=== PATIENT | female | born 1940 | race Caucasian/White ===

== ENCOUNTER 2017-11-03 08:35 | Inpatient (IN) | payer MEDICARE, BC, OTHER ==
[~2017-11-03] VITALS: Ht 157.5 cm; Wt 67.6 kg
[~2017-11-03 08:35] MED LIST: ADULT LOW DOSE81 MG PO; ALEVE220 M1 PO; AMBEREN PO; APAP500 PO; ARTIFICIAL TEA1 EACH OP; ARTIFICIAL TEAR15 M1 OPHTHALMIC; ATIVAN0.5 MG; BIOFREEZE PAI3840 GM; CALCIUM 500 WI1 EAC3 PO; CALCIUM 600 +1 EAC5 PO; CLARITIN10 M2 PO; CLARITIN10 MG PO; CLARITIN5 MG PO; CRANBERRY TABL1 EACH PO; CRANBERRY500 M1 PO; CYCLOBENZAPRINE10 MG PO; ESTRACE CREAM TOP; FENTANYL TRANSDERM; FISH OIL + D31 EACH PO; FISH OIL 1,001000 M2 PO; FISH OIL 1,2001 EAC3 PO; FISHOIL PO; FLEXERIL PO; FLUOXETINE HCL10 M1 PO; FLUZONE 2045 MCG/011; GABAPENTIN PO; GABAPENTIN100 MG PO; GLUCOSAMINE-CH1 EAC4 PO; HEMORRHOID; HEMORRHOID OINT60 G1; IBUPROFEN 200200 M1 PO; IBUPROFEN200 M2 PO; KENALOG IN ORABA5 GM; KEPPRA 500 MG500 M1 PO; LEVOTHYROXINE0.05 MG PO; LEVOXYL75 MCG PO; LIDODERM 5%1 PATC1 TRANSDERM; LIORESAL 10 MG10 MG PO; LISINOPRIL10 MG; LISINOPRIL5 MG PO; LORAZEPAM 0.50.5 MG PO; LOVASTATIN 20 M20 MG PO; LOVASTATIN PO; LUTEIN-ZEAXANT1 EACH PO; MAGNES PO; MAGNESIUM OXID200 MG PO; MELADOX3 MG PO; MELATONIN3 MG PO; MELOXICAM7.5 MG PO; METOPROLOL SUCC25 M1 PO; MIRALAX255 GM PO; MULTIVITAMINS; MULTIVITAMINS PO; NAPROXEN SODIU220 M2 PO; NASAL MOISTURIZ30 ML; NASAL SPRAY30 ML; NEURONTIN 400400 M1 PO; NORCO 5-325 TA1 EACH PO; OCEAN45 ML NASAL; PEDIA-LAX400 MG PO; PERCOCET PO; PNEUMOVAX25 MCG/0.5; PREPARATION H O30 GM RECTAL; PROZAC 10 MG CA10 M1 PO; RECLAST 55 MG/100 M IV; SENNA-S TABLET1 EACH PO; SINUS & ALLERG1 EAC1 PO; SINUS CONGESTI PO; SV CALCIUM-MAG1 EACH PO; SYNTHROID50 MCG PO; TESSALON PERLE100 MG PO; TRAMADOL 50 MG50 MG; TRAMADOL 50 MG50 MG PO; TRIAMCINOLONE; TRIAMCINOLONE 0.5% TOP; TYLENOL P.M. E1 EAC3; TYLENOL W/CODEI1 TA2 PO; VITAMIN B-121000 MCG PO; VITAMIN B-122500 MCG SL; VITAMIN B-12500 MCG PO; ZANAFLEX4 MG PO; ZEAXANTHIN100 GM MC; ZINC CHELATE15 MG PO; [UNRECOGNIZED DRUG - OTHER] RECTAL
[2017-11-03 08:39] VITALS: BP 114/62
[2017-11-03 10:30] LABS: HEMATOCRIT 41.9 % (37.0-47.0); HEMOGLOBIN 13.6 gm/dL (12.0-15.0); MCH 29.3 pg (26.0-34.0); MCHC 32.5 g/dL (28.0-37.0); MCV 90.4 fL (80.0-100.0); MPV 7.7 fl. (7.2-11.1); NUCLEATED RBCS 0 /100WBC; PLATELET COUNT* 209 thou/uL (150-400); RBC 4.63 mil/uL (4.20-5.00); RDW-CV 12.8 % (10.5-14.5); WBC 18.6 thou/uL (4.0-11.0)
[2017-11-03 10:37] LABS: CALCIUM 9.1 mg/dL (8.5-10.1); CREATININE 0.8 mg/dL (0.6-1.3); POTASSIUM 3.8 mmol/L (3.5-5.1)
[2017-11-03 10:42] LABS: ALBUMIN 3.7 g/dL (3.4-5.0); TOTAL BILIRUBIN 0.7 mg/dL (<0.1-1.0); TOTAL PROTEIN 7.1 g/dL (6.4-8.2)
[2017-11-03 11:19] LABS: ABSOLUTE LYMPHOCYTES 0.9 thou/uL (0.8-5.3); ABSOLUTE MONOCYTES 0.7 thou/uL (0.0-1.2); ABSOLUTE NEUTROPHILS 16.9 thou/uL (1.6-8.1); PLATELET ESTIMATE ADEQUATE
[2017-11-03 11:27] VITALS: BP 120/68
[2017-11-03 14:02] VITALS: BP 118/57
[2017-11-03 16:00] VITALS: BP 96/51
[2017-11-03 21:40] VITALS: BP 107/60
[2017-11-03 22:24] LABS: URINE BILIRUBIN NEGATIVE (Negative); URINE BLOOD NEGATIVE (Negative); URINE CLARITY CLEAR; URINE COLOR YELLOW; URINE GLUCOSE-RANDOM NEGATIVE (Negative); URINE KETONES TRACE (Negative); URINE LEUKOCYTES-REFLEX NEGATIVE (Negative); URINE NITRITE-REFLEX NEGATIVE (Negative); URINE PROTEIN NEGATIVE (Negative); URINE UROBILINOGEN 0.2 E.U./dl (0.2-1.0)
[2017-11-04 07:45] VITALS: BP 144/69
[2017-11-04 09:24] LABS: HEMATOCRIT 34.5 % (37.0-47.0); HEMOGLOBIN 11.8 gm/dL (12.0-15.0); MCH 29.9 pg (26.0-34.0); MCHC 34.2 g/dL (28.0-37.0); MCV 87.4 fL (80.0-100.0); MPV 7.6 fl. (7.2-11.1); NUCLEATED RBCS 0 /100WBC; PLATELET COUNT* 204 thou/uL (150-400); RBC 3.95 mil/uL (4.20-5.00); RDW-CV 13.1 % (10.5-14.5); WBC 10.9 thou/uL (4.0-11.0)
[2017-11-04 10:12] LABS: ABSOLUTE LYMPHOCYTES 1.5 thou/uL (0.8-5.3); ABSOLUTE MONOCYTES 0.2 thou/uL (0.0-1.2); ABSOLUTE NEUTROPHILS 9.2 thou/uL (1.6-8.1); ANISOCYTOSIS 1+; POIKILOCYTOSIS 1+
[2017-11-04 10:13] LABS: PLATELET ESTIMATE ADEQUATE
[2017-11-04 10:16] LABS: APTT 29.5 Seconds (25.0-31.3); INR 1.1; PROTIME 10.7 Seconds (9.20-11.50)
--- NOTE | 2017-11-04 12:12 | EKG ---
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 BATEMAN : 1940 Requested By: Rajiv Aldrich Order Number: [id number] MD: Robert Schroeder Measurements Intervals [place] Rate: 63 P: -22 OK: 206 QRS: -38 QRSD: 155 T: 105 QT: 487 QTc: 499 Interpretive Statements Sinus rhythm Left bundle branch block Baseline wander in lead(s) V4 Compared to ECG 10/13/2015 09:12:24 rate slowed Electronically Signed On 11-04-2017 12:12:07 CDT by Robert Schroeder [email or web address] <ELECTRONICALLY SIGNED> By: Robert Schroeder MD, FAC 11/04/17 1212 1031 1031 Robert Schroeder MD, [facility] /EPI
[2017-11-04 15:49] VITALS: BP 131/73
[2017-11-05 05:35] LABS: CALCIUM 8.6 mg/dL (8.5-10.1); CREATININE 0.7 mg/dL (0.6-1.3); POTASSIUM 4.3 mmol/L (3.5-5.1)
[2017-11-05 05:41] LABS: ABSOLUTE BASOPHILS 0.1 thou/uL (0.0-0.2); ABSOLUTE EOSINOPHILS 0.1 thou/uL (0.0-0.7); ABSOLUTE LYMPHOCYTES 1.6 thou/uL (0.8-5.3); ABSOLUTE MONOCYTES 1.1 thou/uL (0.0-1.2); ABSOLUTE NEUTROPHILS 7.9 thou/uL (1.6-8.1); BASOPHILS 0.7 %; EOSINOPHILS 1.4 %; HEMOGLOBIN 11.6 gm/dL (12.0-15.0); LYMPHOCYTES 14.8 %; MCH 30.2 pg (26.0-34.0); MONOCYTES 10.1 %; MPV 8.8 fl. (7.2-11.1); NUCLEATED RBCS 0 /100WBC; PLATELET COUNT* 187 thou/uL (150-400); RBC 3.82 mil/uL (4.20-5.00); WBC 10.8 thou/uL (4.0-11.0)
[2017-11-05 07:51] VITALS: BP 127/70
[2017-11-05 11:33] VITALS: BP 129/54
[2017-11-05 16:24] VITALS: BP 123/59
[2017-11-05 20:30] VITALS: BP 143/72
[2017-11-06 00:55] VITALS: BP 140/69
[2017-11-06 07:49] VITALS: BP 143/62
[2017-11-06 08:47] VITALS: BP 143/62
== END 2017-11-06 11:27 | DRG 563 ==
LOC: M.ERS 08:35 → M.ORTHSURG 10:47 → M.TBA-ER 10:47 → M.ORTHSURG 11:46
PROVIDERS: Emergency Medicine; Internal Medicine; Orthopaedic Surgery; ADMIT Family Medicine
DX: S82.042A Displaced comminuted fracture of left patella, initial encounter for closed fracture (principal); M25.062 Hemarthrosis, left knee; J44.9 Chronic obstructive pulmonary disease, unspecified; K59.09 Other constipation; I10 Essential (primary) hypertension; M19.90 Unspecified osteoarthritis, unspecified site; R33.9 Retention of urine, unspecified; G40.909 Epilepsy, unspecified, not intractable, without status epilepticus; W06.XXXA Fall from bed, initial encounter; Y93.89 Activity, other specified; Y92.092 Bedroom in other non-institutional residence as the place of occurrence of the external cause; Y99.8 Other external cause status; Z98.42 Cataract extraction status, left eye; Z98.41 Cataract extraction status, right eye; Z79.82 Long term (current) use of aspirin; Z79.899 Other long term (current) drug therapy; Z88.6 Allergy status to analgesic agent

== ENCOUNTER → 2018-07-07 | Outpatient (CLI) | payer MEDICARE, BC, OTHER | LOC: M.RAD 08:14 | DX: Z12.31 Encounter for screening mammogram for malignant neoplasm of breast (principal); M85.89 Other specified disorders of bone density and structure, multiple sites; M81.0 Age-related osteoporosis without current pathological fracture; Z78.0 Asymptomatic menopausal state ==

== ENCOUNTER 2019-01-01 08:59 | Emergency (ER) | payer MEDICARE, BC, OTHER ==
[~2019-01-01] VITALS: Ht 152.4 cm; Wt 63.5 kg
[2019-01-01] MEDS ORDERED: PERCOCET 5-3251 EACH PO (09:51)
[2019-01-01] MEDS ORDERED: ZOFRAN ODT4 MG SUBLING (09:51)
[2019-01-01 11:25] VITALS: BP 132/54
== END 2019-01-01 11:25 | disposition home or self-care (01) ==
LOC: M.ERS 08:59
DX: S42.412A Displaced simple supracondylar fracture without intercondylar fracture of left humerus, initial encounter for closed fracture (principal); Z88.8 Allergy status to other drugs, medicaments and biological substances; Z86.2 Personal history of diseases of the blood and blood-forming organs and certain disorders involving the immune mechanism; W18.39XA Other fall on same level, initial encounter; Y92.89 Other specified places as the place of occurrence of the external cause; Y93.89 Activity, other specified; Y99.8 Other external cause status

== ENCOUNTER → 2019-07-08 | Outpatient (CLI) | payer MEDICARE, BC, OTHER ==
[~2019-07-08] MED LIST changes: +PERCOCET 5-3251 EACH PO; +ZOFRAN ODT4 MG SUBLING
== END ==
LOC: M.RAD 09:11
DX: Z12.31 Encounter for screening mammogram for malignant neoplasm of breast (principal)

== ENCOUNTER → 2020-06-27 | Outpatient (CLI) | payer MEDICARE, BC | LOC: M.RAD 08:55 | PROVIDERS: ATTEND Family Medicine | DX: Z12.31 Encounter for screening mammogram for malignant neoplasm of breast (principal); M81.0 Age-related osteoporosis without current pathological fracture ==

== ENCOUNTER → 2020-10-20 | Outpatient (CLI) | payer MEDICARE, BC | LOC: M.ULTRA 07:42 | PROVIDERS: ATTEND Family Medicine | DX: N95.0 Postmenopausal bleeding (principal) ==

== ENCOUNTER → 2021-06-21 | Outpatient (CLI) | payer MEDICARE, BC | LOC: M.RAD 08:47 | PROVIDERS: ATTEND Family Medicine | DX: Z12.31 Encounter for screening mammogram for malignant neoplasm of breast (principal) ==